=== PATIENT | female | born 1985 | race Caucasian/White ===

== ENCOUNTER 2022-06-28 08:20 | Emergency (ER) | payer MEDICAID ==
[~2022-06-28] VITALS: Ht 175.3 cm; Wt 86.6 kg
[2022-06-28 08:27] VITALS: BP 107/66
--- NOTE | 2022-06-28 08:37 | NUR ---
DR SNOW AT BEDSIDE EVALUATING PT
--- NOTE | 2022-06-28 08:50 | NUR ---
37YO FEMALE PT IN FOR " CHECK UP". PT STATES SHES CURRENTLY ABOUT 13 WEEKS W/ LAST ROUTINE CHECK UP BEING AT 8 WEEKS. PT UNABLE TO RECALL LMP. PT REPORTS SHE HAS HX OF MISCARRIAGES AND TOLD SHE WAS ALSO AT THIS RISK W/ CURRENT . PT DENIES PAIN AT THIS TIME. DENIES VAGINAL BLEEDING. DENIES N/V/D. PT AAOX4, VISIBLE DISTRESS. RESPIRATIONS EVEN AND UNLABORED. 4G 1T 2A 1L HX: DENIES NKA
--- NOTE | 2022-06-28 08:55 | NUR ---
PT AMBULATORY TO RESTROOM
--- NOTE | 2022-06-28 08:59 | NUR ---
PT AMBULATED BACK TO ROOM
--- NOTE | 2022-06-28 09:12 | NUR ---
LAB AT BEDSIDE
--- NOTE | 2022-06-28 09:14 | NUR ---
ULTRASOUND AT BEDSIDE
[2022-06-28 09:30] LABS: BASOPHILS % (AUTO) 0.4 % (0.0-2.0); EOSINOPHILS # (AUTO) 0.1 K/uL (0-0.4); EOSINOPHILS % (AUTO) 0.8 % (0.0-4.0); HEMATOCRIT 37.5 % (36-48); HEMOGLOBIN 12.6 g/dL (12.0-16.0); LYMPHOCYTES # (AUTO) 1.4 K/uL (2.5-16.5); LYMPHOCYTES % (AUTO) 17.9 % (20.5-51.1); MEAN CORPUSCULAR HEMOGLOBIN 29 pg (27-31); MEAN CORPUSCULAR HGB CONC 34 g/dL (33-37); MEAN CORPUSCULAR VOLUME 87.9 fL (80-94); MONOCYTES # (AUTO) 0.6 K/uL (0.8-1.0); MONOCYTES % (AUTO) 7.6 % (1.7-9.3); NEUTROPHILS # (AUTO) 5.7 K/uL (1.8-7.7); NEUTROPHILS % (AUTO) 73.3 % (42.2-75.2); PLATELET COUNT (AUTO) 265 K/uL (140-450); RED BLOOD CELL COUNT(AUTO) 4.27 MIL/uL (4.20-5.40); RED CELL DISTRIBUTION WIDTH 12.8 % (11.6-13.7); WHITE BLOOD COUNT (AUTO) 7.8 K/uL (4.8-10.8)
[2022-06-28 09:35] LABS: APPEARANCE,URINE SL CLOUDY (CLEAR); BILIRUBIN,URINE NEGATIVE (NEGATIVE); BLOOD, URINE NEGATIVE (NEGATIVE); COLOR,URINE YELLOW (YELLOW); LEUKOCYTE ESTERASE ,URINE NEGATIVE (NEGATIVE); NITRITE, URINE NEGATIVE (NEGATIVE); UGLUCOSE NEGATIVE (NEGATIVE)
--- NOTE | 2022-06-28 09:36 | NUR ---
pt ambulatory to restroom
--- NOTE | 2022-06-28 09:38 | NUR ---
pt ambulatory back to room
--- NOTE | 2022-06-28 10:10 | NUR ---
pt provided with snacks
--- NOTE | 2022-06-28 10:20 | NUR ---
37/F PRESENTS TO ED STATING SHE IS AND IS REQUESTING TO KNOW HOW FAR ALONG SHE IS. STATES SHE HAD A POSITIVE TEST ABOUT A MONTH AGO AND IS UNSURE HOW MANY WEEKS SHE IS. REPORTS SHE IS PART OF A REHAB PROGRAM AND THEY ARE REQUESTING TO KNOW HER DUE DATE AND REQUESTING MEDICAL CLEARANCE. PATIENT DENIES ABD PAIN, VAGINAL BLEEDING/DISCHARGE OR ANY OTHER MEDICAL COMPLAINTS.
[2022-06-28 10:47] VITALS: BP 104/66
[2022-06-28] MEDS ORDERED: CHOL1CTB1 PO (11:09)
--- NOTE | 2022-06-28 11:25 | NUR ---
Patient discharged with v/s stable. Written and verbal after care instructions FOR 2ND TRIMESTER OF given and explained. Patient alert, oriented and verbalized understanding of instructions. Ambulatory with steady gait. All questions addressed prior to discharge. ID band removed. Patient advised to follow up with PMD. Rx of COMB NO.42/ FOLIC ACID given.Opportunity to ask questions provided and answered.
--- NOTE | 2022-06-28 11:40 | NUR ---
The patient's care was reviewed and supervised by Jeannie Mcgovern RN.
== END 2022-06-28 11:25 | disposition home or self-care (01) ==
LOC: MED 08:20
DX: O26.892 Other specified pregnancy related conditions, second trimester (principal); F17.210 Nicotine dependence, cigarettes, uncomplicated; Z34.92 Encounter for supervision of normal pregnancy, unspecified, second trimester; Z3A.13 13 weeks gestation of pregnancy; Z79.899 Other long term (current) drug therapy
CPT/HCPCS: 36415; 76817; 81003; 81025; 84702; 85025; 86900; 86901; 99284; Q0092

== ENCOUNTER 2022-07-07 16:45 | Emergency (ER) | payer MEDICAID ==
[~2022-07-07] VITALS: Ht 175.3 cm; Wt 86.2 kg
[~2022-07-07 16:45] MED LIST: CHOL1CTB1 PO
[2022-07-07 16:57] VITALS: BP 114/69
[2022-07-07 17:44] LABS: BILIRUBIN,URINE NEGATIVE (NEGATIVE); BLOOD, URINE 2+ (NEGATIVE); LEUKOCYTE ESTERASE ,URINE NEGATIVE (NEGATIVE); NITRITE, URINE NEGATIVE (NEGATIVE); UGLUCOSE NEGATIVE (NEGATIVE)
[2022-07-07 17:54] LABS: APPEARANCE,URINE CLEAR (CLEAR); COLOR,URINE YELLOW (YELLOW)
--- NOTE | 2022-07-07 18:04 | NUR ---
PT AMB TO BED 3
[2022-07-07 18:11] LABS: RBC,URINE 0-5 /HPF (0-5); WBC,URINE 0-5 /HPF (0-5)
--- NOTE | 2022-07-07 19:21 | NUR ---
triage note: BIB STAFF FROM [facility] C/O VAGINAL BLEEDING, LOWER ABD PAIN, LOWER BACK PAIN, DIARRHEA X TODAY. 14 WEEKS .
[2022-07-07] MEDS ORDERED: CEPH500C16 PO (20:24)
--- NOTE | 2022-07-07 20:34 | NUR ---
Patient discharged with v/s stable. Written and verbal after care instructions given and explained. Patient alert, oriented and verbalized understanding of instructions. Ambulatory with steady gait. All questions addressed prior to discharge. ID band removed. Patient advised to follow up with PMD. Rx of KEFLEX given. Patient educated on indication of medication including possible reaction and side effects. Opportunity to ask questions provided and answered. A/OX4, VSS, UNLABORED BREATHING, AMBULATORY, AND CALM DEMEANOR.
[2022-07-07 20:35] VITALS: BP 110/47
== END 2022-07-07 20:34 | disposition home or self-care (01) ==
LOC: MED 16:45
DX: O20.0 Threatened abortion (principal); O98.811 Other maternal infectious and parasitic diseases complicating pregnancy, first trimester; R82.71 Bacteriuria; O21.8 Other vomiting complicating pregnancy; F17.210 Nicotine dependence, cigarettes, uncomplicated; Z79.899 Other long term (current) drug therapy; Z3A.14 14 weeks gestation of pregnancy
CPT/HCPCS: 76805; 81001; 81025; 87086; 99284; Q0092